=== PATIENT | female | born 1950 | race African-American/Black ===

== ENCOUNTER 2020-02-01 01:28 | Emergency (ER) | payer MEDICARE, MEDICAID ==
[~2020-02-01] VITALS: Ht 167.6 cm; Wt 56.8 kg
[2020-02-01 06:40] VITALS: BP 121/65
[2020-02-01 06:49] LABS: CHLORIDE 108 mEq/L (98-107)
[2020-02-01 06:56] LABS: BASOPHILS % 0.4 % (0.0-2.0); EOSINOPHILS % 1.1 % (0.0-5.0); HEMATOCRIT. 36.7 % (36.0-48.0); HEMOGLOBIN. 12.3 g/dL (12.0-16.0); LYMPHOCYTES % 36.5 % (20.0-50.0); MEAN CORPUSCULAR HEMOGLOBIN 35.5 pg (28.0-32.0); MEAN CORPUSCULAR VOLUME 105.9 fL (81.0-99.0); MEAN PLATELET VOLUME 8.9 fl (7.4-10.4); MONOCYTES % 12.4 % (2.0-8.0); NEUTROPHILS % 49.6 % (40.0-76.0); PLATELET 162 x1000/uL (130-400); RED BLOOD CELL COUNT 3.47 mill/uL (4.2-5.4); RED CELL DISTRIBUTION WIDTH 13.1 % (11.6-14.6)
[2020-02-01] MEDS ORDERED: ACETAMINOPHEN 325MG TABLET PO ONE (07:30)
== END 2020-02-01 08:50 | disposition home or self-care (01) ==
LOC: ER 01:28
DX: R60.0 Localized edema (principal); Z59.0 Homelessness; Z98.890 Other specified postprocedural states; Z88.0 Allergy status to penicillin
CPT/HCPCS: 36415; 71045; 80053; 84484; 85025; 93970; 99285

== ENCOUNTER 2021-12-16 20:59 | Emergency (ER) | payer MEDICARE, MEDICAID ==
[~2021-12-16] VITALS: Ht 162.6 cm; Wt 54.0 kg
[2021-12-16] MEDS ORDERED: KETOROLAC 60MG/2ML VIAL IM ONE (23:45)
[2021-12-16] MEDS ORDERED: HYDROCODONE/ACETAMINOPHEN 5/325MG TABLET PO ONE (23:45)
[2021-12-17 00:22] VITALS: BP 150/92
[2021-12-17] MEDS ORDERED: TRAM50TA MT (04:02)
[2021-12-17] MEDS ORDERED: IBUP-2028 MT (04:02)
== END 2021-12-17 04:21 | disposition home or self-care (01) ==
LOC: ER 20:59
DX: M54.50 Low back pain, unspecified (principal); G89.29 Other chronic pain; M48.061 Spinal stenosis, lumbar region without neurogenic claudication; Z98.890 Other specified postprocedural states; Z88.0 Allergy status to penicillin
CPT/HCPCS: 72131; 99284; J1885

== ENCOUNTER 2021-12-25 22:07 | Inpatient (IN) | payer MEDICARE, MEDICAID ==
[~2021-12-25] VITALS: Ht 162.6 cm; Wt 55.3 kg
[~2021-12-25 22:07] MED LIST: IBUP-2028 MT; TRAM50TA MT
[2021-12-26] MEDS ORDERED: HYDROCHLOROTHIAZIDE 25MG TABLET PO ONE
[2021-12-26 00:26] LABS: HEMATOCRIT. 42.9 % (36.0-48.0); HEMOGLOBIN. 14.3 g/dL (12.0-16.0); MEAN CORPUSCULAR HEMOGLOBIN 34.9 pg (28.0-32.0); MEAN CORPUSCULAR VOLUME 104.9 fL (81.0-99.0); MEAN PLATELET VOLUME 8.9 fl (7.4-10.4); RED BLOOD CELL COUNT 4.09 mill/uL (4.2-5.4); RED CELL DISTRIBUTION WIDTH 12.7 % (11.6-14.6)
[2021-12-26 00:29] LABS: CHLORIDE 106 mEq/L (98-107)
[2021-12-26] MEDS ORDERED: HYDR12.54 MT (01:52)
[2021-12-26] MEDS ORDERED: ASPIRIN 81MG TABLET PO ONE (02:30)
[2021-12-26 05:03] LABS: PLATELET 213 x1000/uL (130-400)
[2021-12-26 05:11] LABS: PLATELET ESTIMATE NORMAL
[2021-12-26 10:56] VITALS: BP 172/78
[2021-12-26] MEDS ORDERED: ONDANSETRON HCL 4MG/2ML INJ IV PRN (11:45)
[2021-12-26] MEDS ORDERED: ACETAMINOPHEN 325MG TABLET PO PRN (11:45)
[2021-12-26] MEDS: LOSARTAN POTASSIUM 50 MG TABLET PO SCH (11:57)
[2021-12-26 13:29] VITALS: BP 172/78
[2021-12-26 14:23] VITALS: BP 117/75
[2021-12-26 16:00] VITALS: BP 111/64
[2021-12-26] MEDS: FUROSEMIDE 40MG/4ML VIAL IVP SCH (18:45)
[2021-12-26 20:00] VITALS: BP 133/84
[2021-12-27] VITALS: BP 137/90
[2021-12-27 04:00] VITALS: BP 137/102
[2021-12-27 08:00] VITALS: BP 143/75
[2021-12-27] MEDS ORDERED: IPRATROPIUM/ALBUTEROL 0.5-3(2.5)MG/3ML NEB HHN PRN (08:30)
[2021-12-27] MEDS: FUROSEMIDE 40MG/4ML VIAL IVP SCH (09:40)
[2021-12-27] MEDS: LOSARTAN POTASSIUM 50 MG TABLET PO SCH (09:40)
[2021-12-27 11:37] VITALS: BP 128/90
[2021-12-27 15:57] VITALS: BP 138/96
[2021-12-27 20:00] VITALS: BP 146/90
[2021-12-28] LABS: CLARITY URINE CLEAR (CLEAR); COLOR URINE YELLOW (YELLOW); KETONES URINE NEGATIVE (NEGATIVE); LEUKOCYTE ESTERASE URINE TRACE (NEGATIVE); NITRITE URINE NEGATIVE (NEGATIVE); OCCULT BLOOD URINE NEGATIVE (NEGATIVE); PH URINE 5.5 (4.5-8.0); PROTEIN URINE NEGATIVE (NEGATIVE); SPECIFIC GRAVITY URINE 1.023 (1.005-1.030); UROBILINOGEN URINE 0.2 E.U./dL (0.2-1.0)
[2021-12-28 00:13] VITALS: BP 134/77
[2021-12-28 00:15] LABS: *AMPHETAMINES SCREEN URINE NEGATIVE (NEGATIVE); *BARBITURATES SCREEN URINE NEGATIVE (NEGATIVE); *BENZODIAZEPINES SCREEN URINE NEGATIVE (NEGATIVE); *COCAINE SCREEN URINE NEGATIVE (NEGATIVE); CANNABINOID URINE SCREEN PRESUMTIVE POSITIVE (NEGATIVE); METHADONE URINE SCREEN NEGATIVE (NEGATIVE); OPIATES URINE SCREEN NEGATIVE (NEGATIVE); PHENCYCLIDINE URINE SCREEN NEGATIVE (NEGATIVE)
[2021-12-28 04:00] VITALS: BP 129/81
[2021-12-28 08:00] VITALS: BP 131/67
[2021-12-28] MEDS: LOSARTAN POTASSIUM 50 MG TABLET PO SCH (09:01)
[2021-12-28 12:00] VITALS: BP 146/75
[2021-12-28 16:00] VITALS: BP 167/88
[2021-12-28 20:37] VITALS: BP 145/77
[2021-12-29 00:38] VITALS: BP 147/92
[2021-12-29 04:00] VITALS: BP 128/75
[2021-12-29 08:00] VITALS: BP 125/77
[2021-12-29] MEDS: LOSARTAN POTASSIUM 50 MG TABLET PO SCH (09:06)
[2021-12-29 16:00] VITALS: BP 138/63
[2021-12-29 16:07] VITALS: BP 138/63
== END 2021-12-29 16:34 | disposition home or self-care (01) | DRG 291 ==
LOC: ER 22:07 → 7WST 12-26 04:39 → ENRESERV 12-26 09:08 → 7WST 12-26 14:38 → 6EST 12-29 10:05
PROVIDERS: ADMIT Internal Medicine; ATTEND Internal Medicine
DX: I11.0 Hypertensive heart disease with heart failure (principal); I50.31 Acute diastolic (congestive) heart failure; J44.9 Chronic obstructive pulmonary disease, unspecified; I20.9 Angina pectoris, unspecified; Z88.0 Allergy status to penicillin
CPT/HCPCS: 36415; 71045; 80053; 80305; 81003; 83880; 84484; 85025; 93005; 93306; 93970; 99285; C1893; J1940

== ENCOUNTER 2023-11-18 05:42 | Emergency (ER) | payer MEDICARE, MEDICAID ==
[~2023-11-18 05:42] MED LIST changes: +HYDR12.54 MT
[2023-11-18 05:48] VITALS: PULSE 80
[2023-11-18] MEDS ORDERED: DIPH28.33 TP (06:26)
== END 2023-11-18 06:30 | disposition home or self-care (01) ==
LOC: ER 06:03
DX: T78.40XA Allergy, unspecified, initial encounter (principal); Z88.0 Allergy status to penicillin; W57.XXXA Bitten or stung by nonvenomous insect and other nonvenomous arthropods, initial encounter; Y93.89 Activity, other specified; Y92.89 Other specified places as the place of occurrence of the external cause; Y99.8 Other external cause status
CPT/HCPCS: 99282